=== PATIENT | male | born 1965 | race Two or more races ===

== ENCOUNTER 2022-03-18 16:33 | Emergency (ER) | payer MEDICAID ==
[~2022-03-18] VITALS: Ht 180.3 cm; Wt 86.2 kg
[~2022-03-18 16:33] MED LIST: PANT40TA2 PO; SUCR1TAB PO
[2022-03-18 16:35] VITALS: BP 151/108
[2022-03-19] MEDS ORDERED: TRIA37.56 PO (12:02)
[2022-03-19] MEDS ORDERED: INDO50SU PO (12:02)
== END 2022-03-18 18:46 | disposition left against medical advice (07) ==
LOC: ER 16:33
DX: M25.561 Pain in right knee (principal); Z53.21 Procedure and treatment not carried out due to patient leaving prior to being seen by health care provider

== ENCOUNTER 2022-03-19 10:28 | Emergency (ER) | payer MEDICAID ==
[~2022-03-19] VITALS: Ht 180.3 cm; Wt 86.2 kg
[2022-03-19 10:29] VITALS: BP 159/105
[2022-03-19] MEDS ORDERED: KETOROLAC TROMETH 60MG/2ML VIAL IM ONE (12:00)
[2022-03-19] MEDS ORDERED: TRIA37.56 PO (12:02)
[2022-03-19] MEDS ORDERED: INDO50SU PO (12:02)
== END 2022-03-19 12:06 | disposition home or self-care (01) ==
LOC: ER 10:28
DX: M71.21 Synovial cyst of popliteal space [Baker], right knee (principal); F17.210 Nicotine dependence, cigarettes, uncomplicated; I10 Essential (primary) hypertension; Y93.89 Activity, other specified
CPT/HCPCS: 93971; 96372; 99284; J1885